=== PATIENT | female | born 1970 ===

== ENCOUNTER 2018-10-16 15:41 | Emergency (ER) | payer SELFPAY ==
[2018-10-16] MEDS ORDERED: Metoclopramide 10 MG/10 ML UDCUP ONE (16:54)
[2018-10-16] MEDS ORDERED: diphenhydrAMINE 50 MG/ML VIAL ONE (16:54)
[2018-10-16] MEDS ORDERED: Metoclopramide HCl 10 MG/2 ML VIAL ONE (16:55)
== END 2018-10-16 19:28 | disposition home or self-care (01) ==
LOC: ERS 15:41
DX: R51 Headache (principal)
CPT/HCPCS: 99283; J1200; J2765; J8597